=== PATIENT | female | born 2000 | race Two or more races ===

== ENCOUNTER 2023-07-06 12:33 | Outpatient (CLI) | payer OTHER | END 2023-07-06 12:35 | disposition home or self-care (01) | LOC: PRENATAL 12:33 | PROVIDERS: ATTEND Obstetrics & Gynecology Maternal & Fetal Medicine | DX: O26.849 Uterine size-date discrepancy, unspecified trimester (principal); Z3A.15 15 weeks gestation of pregnancy ==

== ENCOUNTER 2023-08-02 01:07 | Emergency (ER) | payer OTHER ==
[~2023-08-02] VITALS: Ht 152.4 cm; Wt 78.0 kg
[2023-08-02] MEDS ORDERED: PRENA1 TRUE CO1 EACH (01:13)
[2023-08-02 02:12] LABS: HEMATOCRIT 35.4 % (36.0-45.00); MEAN CELL VOLUME 84.2 fL (80.00-100.00); MEAN CORPUSCULAR HEMOGLOBIN 28.5 pg (27.00-32.0); MEAN CORPUSCULAR HGB CONC 33.9 g/dl (32.0-36.0); PLATELET COUNT 259 K/uL (150-450); RED CELL DISTRIBUTION WIDTH 13.4 % (11.5-14.5)
[2023-08-02 02:13] LABS: URINE APPEARANCE Turbid; URINE BILIRRUBIN Negative (NEGATIVE); URINE BLOOD Negative; URINE COLOR Yellow; URINE GLUCOSE Negative (NEGATIVE); URINE LEUKOCYTE Negative; URINE NITRATE Negative; URINE PROTEIN Negative (NEGATIVE)
[2023-08-02 02:16] LABS: URINE BACTERIA 327.4 uL (0.0-1933); URINE EPITHELIAL CELLS 19.9 uL (0.0-38.8); URINE WBC 10.3 uL (0.0-23.2)
[2023-08-02 03:01] LABS: URINE RBC 1.4 uL (0.0-20.8)
== END 2023-08-02 03:13 | disposition home or self-care (01) ==
LOC: ER 01:07
PROVIDERS: General Practice
DX: O98.512 Other viral diseases complicating pregnancy, second trimester (principal); Z3A.19 19 weeks gestation of pregnancy; Z20.822 Contact with and (suspected) exposure to COVID-19

== ENCOUNTER → 2023-08-10 16:17 | Outpatient (CLI) | payer OTHER ==
[~2023-08-10 16:17] MED LIST: PRENA1 TRUE CO1 EACH
== END | disposition home or self-care (01) ==
LOC: PRENATAL 16:17
PROVIDERS: ATTEND Obstetrics & Gynecology Maternal & Fetal Medicine
DX: O35.3XX0 Maternal care for (suspected) damage to fetus from viral disease in mother, not applicable or unspecified (principal); O44.00 Complete placenta previa NOS or without hemorrhage, unspecified trimester; Z3A.20 20 weeks gestation of pregnancy

== ENCOUNTER 2023-12-10 22:16 | Inpatient (IN) | payer OTHER ==
[~2023-12-10] VITALS: Ht 152.4 cm; Wt 3.2 kg
[2023-12-10] MEDS ORDERED: AMPICILLIN SODIUM 2,000 MG VIAL IV SCH (22:30)
[2023-12-10] MEDS ORDERED: RINGERS SOLUTION,LACTATED 1,000 ML IV SCH (22:30)
[2023-12-10] MEDS ORDERED: OXYTOCIN 20 UNITS/1000ML RL PIGGYBAG IV ONE (23:09)
[2023-12-10] MEDS ORDERED: ERYTHROMYCIN BASE 1 GM TUBE OP ONE (23:09)
[2023-12-10] MEDS ORDERED: CHLORHEXIDINE GLUCONATE 120 ML BOTTLE TOP ONE (23:09)
[2023-12-10 23:34] LABS: URINE APPEARANCE Cloudy; URINE BILIRRUBIN Negative (NEGATIVE); URINE BLOOD Small; URINE COLOR Yellow; URINE GLUCOSE Negative (NEGATIVE); URINE LEUKOCYTE Small; URINE NITRATE Negative; URINE PROTEIN Trace (NEGATIVE); URINE UROBILINOGEN 0.2 E.U./dl
[2023-12-10 23:37] LABS: URINE BACTERIA 459.8 uL (0.0-1933); URINE EPITHELIAL CELLS 54.2 uL (0.0-38.8); URINE RBC 90.6 uL (0.0-20.8)
[2023-12-10 23:38] LABS: HEMOGLOBIN 13.2 g/dL (12.0-15.00); MEAN CELL VOLUME 83.2 fL (80.00-100.00); MEAN CORPUSCULAR HEMOGLOBIN 28.3 pg (27.00-32.0); PLATELET COUNT 285 K/uL (150-450); RED BLOOD COUNT 4.68 M/uL (4.00-6.00); RED CELL DISTRIBUTION WIDTH 14.8 % (11.5-14.5)
[2023-12-10 23:54] LABS: URINE YEAST FEW /hpf
[2023-12-10 23:58] LABS: INR 0.97; PARTIAL THROMBOPLASTIN TIME 31.4 SECONDS (22.0-34.0); PROTHROMBIN TIME 10.2 SECONDS (9.0-11.5)
[2023-12-11 00:01] LABS: ALBUMIN 2.7 gm/dL (3.4-5.0); BILIRUBIN TOTAL 0.29 mg/dL (0.3-1.2); CALCIUM 8.8 mg/dL (8.5-10.1); CREATININE SERUM 0.59 mg/dL (0.55-1.02); GFR 127.46; GLOBULINA 3.6 G/DL (2.4-3.5); POTASSIUM 4.17 mEq/L (3.5-5.1); TOTAL PROTEIN 6.3 gm/dL (6.4-8.2)
[2023-12-11] MEDS ORDERED: OXYTOCIN 20 UNITS/500ML RL PIGGYBAG IV SCH (01:00)
[2023-12-11] MEDS ORDERED: PROMETHAZINE HCL 25 MG/ML AMPUL IV PRN (01:15)
[2023-12-11] MEDS ORDERED: MEPERIDINE HCL/PF 50 MG/ML VIAL IV PRN (01:15)
[2023-12-11] MEDS ORDERED: ERYTHROMYCIN BASE 1 GM TUBE OP ONE ×2 (07:45→09:30)
[2023-12-11] MEDS ORDERED: OXYTOCIN 10 UNITS/ML VIAL ONE ×2 (07:46→14:27)
[2023-12-11] MEDS ORDERED: KETOROLAC TROMETHAMINE 60 MG VIAL IM STA (08:44)
[2023-12-11] MEDS ORDERED: MEPERIDINE HCL/PF 50 MG/ML VIAL IM PRN (08:45)
[2023-12-11] MEDS ORDERED: PROMETHAZINE HCL 25 MG/ML AMPUL IM PRN (08:45)
[2023-12-11] MEDS ORDERED: CHLORHEXIDINE GLUCONATE 120 ML BOTTLE TP NR (08:45)
[2023-12-11] MEDS ORDERED: OXYTOCIN 1,000 ML IV SCH (08:45)
[2023-12-11] MEDS ORDERED: ERYTHROMYCIN BASE 1 GM TUBE OP NR (08:45)
[2023-12-11] MEDS ORDERED: RINGERS SOLUTION,LACTATED 1,000 ML IV SCH (08:45)
[2023-12-11] MEDS ORDERED: OXYTOCIN 40 UNITS in RINGERS SOLUTION,LACTATED 1,000 ML IV ONE (09:30)
[2023-12-11 09:34] LABS: ABG PO2 23.2 mmHg (80-100); ABG pCO2 56.7 mmHg (35-45); BASE EXCESS -8.3 mmol/l; BICARBONATE 20.7 mmol/l (23-25); SaO2 25.5 %; Tco2 22.4 mmol/l
[2023-12-11 09:35] LABS: o2 21 %
[2023-12-11] MEDS ORDERED: KETOROLAC TROMETHAMINE 60 MG VIAL IM ONE (10:29)
[2023-12-11] MEDS ORDERED: AMPICILLIN SODIUM 1,000 MG VIAL ONE (11:58)
[2023-12-11 13:39] LABS: HEMATOCRIT 35.5 % (36.0-45.00); HEMOGLOBIN 12.2 g/dL (12.0-15.00); MEAN CELL VOLUME 83.5 fL (80.00-100.00); MEAN CORPUSCULAR HEMOGLOBIN 28.7 pg (27.00-32.0); MEAN CORPUSCULAR HGB CONC 34.4 g/dl (32.0-36.0); PLATELET COUNT 253 K/uL (150-450); RED BLOOD COUNT 4.25 M/uL (4.00-6.00); RED CELL DISTRIBUTION WIDTH 14.7 % (11.5-14.5)
[2023-12-12] MEDS ORDERED: OxyCODONE HCL/APAP UD (PERCOCET) PO PRN (09:00)
== END 2023-12-14 15:44 | disposition home or self-care (01) | DRG 788 ==
LOC: O/R 22:16 → LDR 22:16 → O/R 12-11 09:20 → OB/GYN 12-11 11:25
PROVIDERS: ADMIT Obstetrics & Gynecology; ATTEND Obstetrics & Gynecology
PROC: 4A1HXCZ Monitoring of Products of Conception, Cardiac Rate, External Approach (ICD-10-PCS; 2023-12-10)
PROC: 10D00Z1 Extraction of Products of Conception, Low, Open Approach (ICD-10-PCS; principal; 2023-12-11 11:30)
DX: O62.0 Primary inadequate contractions (principal); O64.0XX0 Obstructed labor due to incomplete rotation of fetal head, not applicable or unspecified; Z3A.38 38 weeks gestation of pregnancy; Z37.0 Single live birth; Z20.822 Contact with and (suspected) exposure to COVID-19